=== PATIENT | male | born 1965 | race Caucasian/White ===

== ENCOUNTER → 2019-08-12 | Outpatient (CLI) | payer OTHER ==
[~2019-08-12] MED LIST: ASPI-650 PO; ATOR-2 PO; CARV3.122 PO; CARV6.2512 PO; FURO20TA3 PO; INSU100C5 SQ-INSULIN; INSU100I11 SQ-INSULIN; INSU100I13 IJ; INSU100I13 SQ-INSULIN; LISI-167 PO; NITR0.4T28 SL; SPIR25TA PO; SPIR25TA5 PO
== END | disposition home or self-care (01) ==
LOC: STAR 09:12
PROVIDERS: ATTEND Internal Medicine Gastroenterology
DX: Z01.818 Encounter for other preprocedural examination (principal); R91.8 Other nonspecific abnormal finding of lung field; I89.9 Noninfective disorder of lymphatic vessels and lymph nodes, unspecified; I50.9 Heart failure, unspecified; I35.1 Nonrheumatic aortic (valve) insufficiency; I25.10 Atherosclerotic heart disease of native coronary artery without angina pectoris; E11.9 Type 2 diabetes mellitus without complications; Z86.010 Personal history of colon polyps
CPT/HCPCS: 93005

== ENCOUNTER 2019-08-19 06:35 | Day surgery (SDC) ==
[~2019-08-19] VITALS: Ht 185.4 cm; Wt 102.9 kg
[2019-08-19 07:13] VITALS: BP 132/69
[2019-08-19] MEDS ORDERED: LACTATED RINGERS 1,000 ML IV SCH (07:15)
[2019-08-19] MEDS ORDERED: AMOX-291 PO (07:17)
[2019-08-19] MEDS ORDERED: MIDAZOLAM 1 MG/ML, 2ML ONE (07:57)
[2019-08-19] MEDS ORDERED: FENTANYL PF 250 MCG/5ML ONE (07:57)
[2019-08-19] MEDS ORDERED: ONDANSETRON 2MG/ML, 2ML IV PRN (08:00)
[2019-08-19] MEDS ORDERED: ACETAMINOPHEN 325 MG TABLET PO PRN (08:00)
[2019-08-19] MEDS ORDERED: MEPERIDINE/PF 25MG/ML,1ML IVPush PRN (08:00)
[2019-08-19] MEDS ORDERED: OXYcodone 5 MG/5 ML ORAL.SOL UDC PO PRN (08:00)
[2019-08-19] MEDS ORDERED: hydrALAzine 20 MG/ML, 1ML IV PRN (08:00)
[2019-08-19] MEDS ORDERED: LABETALOL 5MG/ML, 20ML IV PRN (08:00)
[2019-08-19] MEDS ORDERED: HYDROmorphone 2 MG/ML, 1ML IVPush PRN (08:00)
[2019-08-19] MEDS ORDERED: PROMETHAZINE 25 MG/ML, 1ML IV PRN (08:00)
[2019-08-19] MEDS ORDERED: FENTANYL PF 100 MCG/2ML IV PRN (08:00)
[2019-08-19] MEDS ORDERED: SUGAMMADEX 200 MG/2 ML IVPush ONE (08:04)
[2019-08-19] MEDS ORDERED: ONDANSETRON 2MG/ML, 2ML ONE ×2 (08:56)
[2019-08-19] MEDS ORDERED: ROCURONIUM 10MG/ML,5ML ONE (08:57)
[2019-08-19] MEDS ORDERED: PROPOFOL 10 MG/ML, 20ML ONE (08:57)
[2019-08-19] MEDS ORDERED: SUCCINYLCHOLINE 20 MG/ML, 10ML ONE (08:57)
[2019-08-19] MEDS ORDERED: EPHEDRINE 50 MG/ML, 1ML ONE (09:01)
== END 2019-08-19 10:30 | disposition home or self-care (01) ==
LOC: OUT 06:35
PROVIDERS: ATTEND Internal Medicine Gastroenterology
DX: R93.3 Abnormal findings on diagnostic imaging of other parts of digestive tract (principal); K29.80 Duodenitis without bleeding; K44.9 Diaphragmatic hernia without obstruction or gangrene; K26.9 Duodenal ulcer, unspecified as acute or chronic, without hemorrhage or perforation; R59.1 Generalized enlarged lymph nodes; I10 Essential (primary) hypertension; F15.90 Other stimulant use, unspecified, uncomplicated; Z79.899 Other long term (current) drug therapy; Z98.890 Other specified postprocedural states; Z72.89 Other problems related to lifestyle
CPT/HCPCS: 43239; 43259; 82962; 88305; 88342; J0330; J2250; J2405; J2704; J3010; J7120

== ENCOUNTER 2019-12-16 12:14 | Outpatient (CLI) | payer OTHER ==
[~2019-12-16 12:14] MED LIST changes: +AMOX-291 PO
[2019-12-16] MEDS ORDERED: OMNIPAQUE 350 MG/ML, 75ML BOTTLE ONE (13:32)
== END 2019-12-16 23:59 | disposition home or self-care (01) ==
LOC: CFH 12:14
PROVIDERS: ATTEND Internal Medicine Cardiovascular Disease
DX: I35.1 Nonrheumatic aortic (valve) insufficiency (principal); I42.9 Cardiomyopathy, unspecified; R59.1 Generalized enlarged lymph nodes
CPT/HCPCS: 71260; 93306; Q9967

== ENCOUNTER → 2020-11-30 | Outpatient (CLI) | payer OTHER ==
[~2020-11-30] MED LIST changes: +ASPI-1026 PO; -ASPI-650 PO; +ASPI325T20 PO
== END | disposition home or self-care (01) ==
LOC: CVU 10:50
PROVIDERS: ATTEND Internal Medicine Cardiovascular Disease
DX: I08.8 Other rheumatic multiple valve diseases (principal); I42.9 Cardiomyopathy, unspecified
CPT/HCPCS: 93306